=== PATIENT | male | born 1955 ===

== ENCOUNTER 2023-10-07 12:44 | Emergency (ER) | payer OTHER, MEDICARE, SELFPAY ==
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
[2023-10-07 12:59] VITALS: BP 142/84; BP 190/90; PULSE 59; PULSE 65; RESP 16; TEMP 36.8; O2SAT 94; O2SAT 97; BMI 36.9
[2023-10-07] MEDS: LORazepam 1 MG TABLET PO (14:12)
[2023-10-07 16:31] VITALS: BP 141/90; PULSE 55; RESP 16; TEMP 36.9; O2SAT 95
[2023-10-07 17:32] VITALS: BP 141/90; PULSE 55; RESP 16; TEMP 36.9; O2SAT 95
== END 2023-10-07 17:37 | disposition home or self-care (01) ==
PROVIDERS: Emergency Provider Emergency Medicine; PCP Internal Medicine
DX: S39.92XA Unspecified injury of lower back, initial encounter (principal); S09.90XA Unspecified injury of head, initial encounter; R51.9 Headache, unspecified; M54.2 Cervicalgia; V43.52XA Car driver injured in collision with other type car in traffic accident, initial encounter; Y93.9 Activity, unspecified; Y92.410 Unspecified street and highway as the place of occurrence of the external cause; Y99.8 Other external cause status
CPT/HCPCS: 70450; 72125; 72132; 99284